=== PATIENT | male | born 2000 | race Caucasian/White ===

== ENCOUNTER 2022-11-28 13:58 | Outpatient (CLI) | payer OTHER, SELFPAY ==
--- NOTE | 2022-11-28 13:30 | DI.RAD_ITS ---
Exam(s) XR WRIST RT LIMITED EXAM: XR WRIST RT LIMITED INDICATION: F/U FRACTURE. COMPARISON: CR XR WRIST RIGHT 3 OR MORE VIEWS from 09/28/2022 TECHNIQUE: 2D digital imaging was performed. Two views. FINDINGS: There exam is exuberant callus formation around the distal ulnar fracture site. The alignment is no ndisplaced. No radial or carpal bone fracture is seen. DATA REPOSITORY: RADIATION DOSE DELIVERED:
--- NOTE | 2022-11-28 13:30 | DI.RAD_ITS ---
Exam(s) XR ANKLE LT COMPLETE EXAM: XR ANKLE LT COMPLETE CLINICAL HISTORY: left ankle pain TECHNIQUE: 2D digital imaging was performed. Three views. COMPARISON: CR XR ANKLE LEFT 3 OR MORE VIEWS from 09/28/2022 FINDINGS: BONES: There has been some interval healing at the talar fracture. Few small bony fragments at the l ateral aspect of the talus partially obscured by overlap. JOINTS:The ankle mortise is normally aligned. SOFT TISSUE: Mild swelling decreasing from prior. IMPRESSION: Healing talar fracture. DATA REPOSITORY: RADIATION DOSE DELIVERED:
== END 2022-11-28 13:59 | disposition home or self-care (01) ==
LOC: DIORS 13:58
PROVIDERS: Visit Provider Student in an Organized Health Care Education/Training Program
DX: S52.614D Nondisplaced fracture of right ulna styloid process, subsequent encounter for closed fracture with routine healing (principal); S92.135 Nondisplaced fracture of posterior process of left talus; X58.XXXD Exposure to other specified factors, subsequent encounter
CPT/HCPCS: 73100; 73610